=== PATIENT | female | born 1945 | race Caucasian/White ===

== ENCOUNTER 2023-10-04 15:38 | Inpatient (IN) | payer MEDICARE ==
[2023-10-04] MEDS ORDERED: Ipratropium/Albuterol 3 ML NEB NEB PRN (20:32)
[2023-10-04] MEDS ORDERED: TETANUS, DIPHTHERIA TOX,ADULT (TDVAX) 0.5 ML VIAL IM ONE (20:32)
[2023-10-04] MEDS ORDERED: Glucagon 1 MG/ML KIT IM PRN (20:32)
[2023-10-04] MEDS ORDERED: Dextrose 50% Abboject 50 ML SYRINGE SLOW IVP PRN (20:32)
[2023-10-04] MEDS ORDERED: Ondansetron PF 4 MG/2 ML Vial IVP PRN (20:32)
[2023-10-04] MEDS ORDERED: Dextrose 5% in Water 1,000 ML IV PRN (20:32)
[2023-10-04 20:36] VITALS: BMI 21.2
[2023-10-04] MEDS ORDERED: Morphine 2 MG/ML VIAL SLOW IVP PRN (20:44)
[2023-10-04] MEDS: Sodium Chloride 0.9% 1,000 ML IV SCH (22:27)
[2023-10-04] MEDS: Acetaminophen 325 MG TAB PO SCH (23:08)
[2023-10-04] MEDS: traMADol HCl 50 MG TAB PO PRN (23:08)
[2023-10-05] MEDS: Acetaminophen 325 MG TAB PO SCH ×3 (04:49→19:22)
[2023-10-05 05:45] LABS: Anion Gap 11 mmol/L (10-20); BUN (Urea Nitrogen) 17 mg/dL (9.8-20.1); Calc. Creatinine Clearance 50 mL/min (70-130); Calcium 9.2 mg/dL (7.8-10.44); Carbon Dioxide 23 mmol/L (23-31); Chloride 107 mmol/L (98-107); Estimated GFR 77; Glucose 84 mg/dL (83-110); Phosphorus 2.8 mg/dL (2.3-4.7); Potassium 4.5 mmol/L (3.5-5.1); Sodium 136 mmol/L (136-145)
[2023-10-05] MEDS ORDERED: CEFAZOLIN 2 GM in Sodium Chloride 0.9% 100 ML IVPB SCH (13:15)
[2023-10-05 16:32] LABS: #Basophils 0.1 thou/uL (0.0-0.2); #Eosinphils 0.1 thou/uL (0.0-0.7); #Monocytes 0.4 thou/uL (0.11-0.59); #Neutrophils 3.2 thou/uL (1.40-6.50); %Eosinophils 2.4 % (0.0-10.0); %Neutrophils 71.2 % (42.0-75.0); Hematocrit 32.1 % (36.0-47.0); Hemoglobin 10.3 g/dL (12.0-16.0); Mean Corpuscular HGB CONC 32.1 g/dL (32.0-36.0); Mean Corpuscular Hemoglobin 29.7 pg (27.0-31.0); Mean Corpuscular Volume 92.5 fl (78.0-98.0); Mean Platelet Volume 8.8 fL (7.4-10.4); Platelet Count 233 10x3/uL (130-400); RBC Distribution Width 15.1 % (11.5-14.5); Red Blood Cell (RBC) Count 3.47 mill/uL (4.20-5.40); White Blood Cell (WBC) Count 4.5 10x3/uL (4.8-10.8)
[2023-10-05] MEDS ORDERED: CEFAZOLIN 2 GM VIAL ONE (16:53)
[2023-10-05] MEDS ORDERED: Sodium Chloride 0.9% 100 ML ONE (16:53)
[2023-10-05 17:00] LABS: Troponin I Less than 0.010 ng/mL (< 0.028)
[2023-10-05] MEDS ORDERED: Ketamine In 0.9 % NaCl 50 MG/5 ML SYRINGE ONE (17:05)
[2023-10-05] MEDS ORDERED: fentaNYL PF 100 MCG/2 ML SYRINGE ONE ×3 (17:05→20:02)
[2023-10-05] MEDS ORDERED: PROPOFOL 20 ML ONE (17:05)
[2023-10-05] MEDS ORDERED: Lidocaine 1% PF 5 ML VIAL ONE ×2 (17:06→17:09)
[2023-10-05] MEDS ORDERED: Sevoflurane 250 ML INH ANEST BOTTLE ONE (17:08)
[2023-10-05] MEDS ORDERED: NEOSTIGMINE 3 MG/3 ML SYR 3 MG/3 ML SYRINGE ONE ×2 (17:09→17:56)
[2023-10-05] MEDS ORDERED: Glycopyrrolate 0.2 MG/ML 5 ML SYRINGE ONE ×2 (17:09→17:56)
[2023-10-05] MEDS ORDERED: Ondansetron PF 4 MG/2 ML Vial ONE ×2 (17:09→17:55)
[2023-10-05] MEDS ORDERED: Rocuronium Bromide 10 MG/ML (10ML VIAL) ONE ×2 (17:09→17:11)
[2023-10-05] MEDS ORDERED: PROPOFOL 200 MG/20 ML VIAL ONE (17:09)
[2023-10-05] MEDS ORDERED: Dexamethasone 20 MG/5 ML VIAL ONE (17:09)
[2023-10-05] MEDS ORDERED: Dexamethasone 4 mg/ml Vial ONE (17:37)
[2023-10-05] MEDS ORDERED: HYDROmorphone 2 MG/ML VIAL ONE (18:32)
[2023-10-05] MEDS ORDERED: HYDROmorphone 2 MG/ML VIAL SLOW IVP PRN (18:33)
[2023-10-05] MEDS ORDERED: Morphine Sulfate 2 MG/ML SYRINGE SLOW IVP PRN (18:33)
[2023-10-05] MEDS ORDERED: Ondansetron HCl/PF 4 MG/2 ML Vial IVP PRN (18:33)
[2023-10-05] MEDS ORDERED: PACU-Morphine 4MG/ML VIAL SLOW IVP PRN (18:33)
[2023-10-05] MEDS ORDERED: Promethazine HCl 25 MG/ML VIAL IM PRN (18:33)
[2023-10-05] MEDS ORDERED: Morphine 4 MG/ML VIAL ONE (18:58)
[2023-10-05] MEDS ORDERED: HYDROmorphone 0.5 MG/0.5 ML SYRINGE ONE ×3 (19:05→19:48)
[2023-10-05] MEDS ORDERED: Acetaminophen 325 MG TAB ONE (19:06)
[2023-10-05] MEDS: Sodium Chloride 0.9% 1,000 ML IV SCH ×2 (19:22→21:50)
[2023-10-05 21:00] LABS: Bacteria/HPF 2+ HPF (None Seen); Bilirubin Negative (Negative); Blood, Urine Trace (Negative); CAUTI Indications for Culture Alt mental st,lethar; Clarity Turbid (Clear); Glucose, Urine (Dipstick) Normal (Negative); Ketone, Urine 10 mg/dL (Negative); Leukocyte 500 Leu/uL (Negative); Nitrite Negative (Negative); Protein, Urine (Dipstick) 30 mg/dL (Neg-Trace); Renal Epithelial 0-3 HPF (None Seen); Specific Gravity, Urine 1.018 (1.002-1.036); Squamous Epithelial 0-3 HPF (0-3); Transitional Epithelial 0-3 HPF (None Seen); Urobilinogen Normal mg/dL (Less than 2); WBC/HPF Greater than 50 HPF (0-3); pH, Urine 5.5 (5.0-9.0)
[2023-10-05 21:01] LABS: Urine Culture Reflex Yes Yes
[2023-10-05] MEDS: CEFAZOLIN 2 GM in Sodium Chloride 0.9% 100 ML IVPB SCH (21:50)
[2023-10-06] MEDS: Acetaminophen 325 MG TAB PO SCH ×5 (00:38→23:18)
[2023-10-06] MEDS: CEFAZOLIN 2 GM in Sodium Chloride 0.9% 100 ML IVPB SCH (06:07)
[2023-10-06 07:45] LABS: #Monocytes 0.6 thou/uL (0.11-0.59); #Neutrophils 6.3 thou/uL (1.40-6.50); %Basophils 0.3 % (0.0-1.0); %Lymphocytes 4.4 % (21.0-51.0); %Monocytes 8.5 % (0.0-10.0); %Neutrophils 86.3 % (42.0-75.0); Hematocrit 31.1 % (36.0-47.0); Hemoglobin 9.7 g/dL (12.0-16.0); Mean Corpuscular HGB CONC 31.2 g/dL (32.0-36.0); Mean Corpuscular Hemoglobin 29.1 pg (27.0-31.0); Mean Corpuscular Volume 93.4 fl (78.0-98.0); Platelet Count 263 10x3/uL (130-400); RBC Distribution Width 15.2 % (11.5-14.5); Red Blood Cell (RBC) Count 3.33 mill/uL (4.20-5.40); White Blood Cell (WBC) Count 7.3 10x3/uL (4.8-10.8)
[2023-10-06 08:09] LABS: ALT (SGPT) 10 U/L (8-55); AST (SGOT) 13 U/L (5-34); Albumin 2.8 g/dL (3.4-4.8); Alkaline Phosphatase 118 U/L (40-110); Anion Gap 12 mmol/L (10-20); BUN (Urea Nitrogen) 25 mg/dL (9.8-20.1); Bilirubin, Total 0.2 mg/dL (0.2-1.2); Calc. Creatinine Clearance 37 mL/min (70-130); Calcium 8.8 mg/dL (7.8-10.44); Carbon Dioxide 21 mmol/L (23-31); Chloride 109 mmol/L (98-107); Estimated GFR 53; Globulin 2.3 g/dL (2.4-3.5); Glucose 165 mg/dL (83-110); Potassium 4.9 mmol/L (3.5-5.1); Protein, Total 5.1 g/dL (5.8-8.1); Sodium 137 mmol/L (136-145)
[2023-10-06] MEDS: Sodium Chloride 0.9% 1,000 ML IV SCH ×2 (09:18→19:00)
[2023-10-06] MEDS: Aspirin 81 mg Enteric Coated Tablet PO SCH ×2 (09:18→19:56)
[2023-10-06] MEDS: traMADol HCl 50 MG TAB PO PRN (09:19)
[2023-10-06] MEDS ORDERED: Polyethylene Glycol 3350 17 GM Packet PO PRN (13:39)
[2023-10-06] MEDS ORDERED: Senokot 8.6 MG TAB PO PRN (13:39)
[2023-10-06] MEDS: Cephalexin 250 MG CAP PO SCH ×2 (17:38→23:18)
[2023-10-07] MEDS: Sodium Chloride 0.9% 1,000 ML IV SCH (03:50)
[2023-10-07] MEDS: Cephalexin 250 MG CAP PO SCH ×2 (05:07→13:45)
[2023-10-07] MEDS: Acetaminophen 325 MG TAB PO SCH ×3 (05:07→18:13)
[2023-10-07 05:26] LABS: #Eosinphils 0.1 thou/uL (0.0-0.7); #Monocytes 0.8 thou/uL (0.11-0.59); #Neutrophils 4.9 thou/uL (1.40-6.50); %Basophils 0.4 % (0.0-1.0); %Eosinophils 1.8 % (0.0-10.0); %Monocytes 11.7 % (0.0-10.0); %Neutrophils 71.7 % (42.0-75.0); Mean Corpuscular Volume 93.5 fl (78.0-98.0); Platelet Count 243 10x3/uL (130-400); RBC Distribution Width 15.6 % (11.5-14.5); White Blood Cell (WBC) Count 6.8 10x3/uL (4.8-10.8)
[2023-10-07 05:50] LABS: Anion Gap 9 mmol/L (10-20); BUN (Urea Nitrogen) 22 mg/dL (9.8-20.1); Calc. Creatinine Clearance 51 mL/min (70-130); Calcium 8.6 mg/dL (7.8-10.44); Carbon Dioxide 21 mmol/L (23-31); Chloride 111 mmol/L (98-107); Estimated GFR 78; Glucose 98 mg/dL (83-110); Potassium 4.5 mmol/L (3.5-5.1); Sodium 136 mmol/L (136-145)
[2023-10-07] MEDS: traMADol HCl 50 MG TAB PO PRN (09:36)
[2023-10-07] MEDS: Aspirin 81 mg Enteric Coated Tablet PO SCH ×2 (09:36→20:31)
[2023-10-07] MEDS: Cipro 250 MG TAB PO SCH (20:31)
[2023-10-08] MEDS: Acetaminophen 325 MG TAB PO SCH ×5 (01:10→23:35)
[2023-10-08] MEDS: Cipro 250 MG TAB PO SCH ×2 (05:29→20:14)
[2023-10-08] MEDS: Aspirin 81 mg Enteric Coated Tablet PO SCH ×2 (09:09→20:14)
[2023-10-08] MEDS: traMADol HCl 50 MG TAB PO PRN ×2 (09:13→17:53)
[2023-10-09] MEDS: traMADol HCl 50 MG TAB PO PRN (05:25)
[2023-10-09] MEDS: Acetaminophen 325 MG TAB PO SCH ×3 (05:25→18:31)
[2023-10-09] MEDS: Cipro 250 MG TAB PO SCH ×2 (05:26→20:05)
[2023-10-09] MEDS: Aspirin 81 mg Enteric Coated Tablet PO SCH ×2 (09:05→20:04)
[2023-10-09 20:07] VITALS: BP 146/71; TEMP 98.4
[2023-10-09] MEDS ORDERED: traMADol HCl 50 MG TAB PO SCH (21:00)
== END 2023-10-09 20:30 | DRG 481 ==
LOC: SURG A 19:18 → OBSVTOIN 20:32
PROVIDERS: ADMIT Surgery; ATTEND Surgery
PROC: 0QS604Z Reposition Right Upper Femur with Internal Fixation Device, Open Approach (ICD-10-PCS; principal; 2023-10-05)
DX: S72.141A Displaced intertrochanteric fracture of right femur, initial encounter for closed fracture (principal); N39.0 Urinary tract infection, site not specified; W19.XXXA Unspecified fall, initial encounter; F03.90 Unspecified dementia, unspecified severity, without behavioral disturbance, psychotic disturbance, mood disturbance, and anxiety; Y92.9 Unspecified place or not applicable
CPT/HCPCS: 36415; 80048; 80053; 81001; 83735; 84100; 84484; 85025; 87077; 87086; 87186; 93005; 93010; C1713; J1100; J1170; J2270; J2272; J2405; J2704; J3490; J7050